=== PATIENT | female | born 1990 | race Caucasian/White ===

== ENCOUNTER → 2018-09-16 | Emergency (ER) | payer OTHER ==
[~2018-09-16] VITALS: Ht 160 cm; Wt 60.3 kg
== END | disposition home or self-care (01) ==
LOC: ER 19:16
DX: K52.89 Other specified noninfective gastroenteritis and colitis (principal)

== ENCOUNTER 2018-09-19 21:10 | Emergency (ER) | payer OTHER ==
[~2018-09-19] VITALS: Ht 160 cm; Wt 59.4 kg
== END 2018-09-20 00:12 | disposition home or self-care (01) ==
LOC: ER 21:10
DX: R10.2 Pelvic and perineal pain (principal); L08.89 Other specified local infections of the skin and subcutaneous tissue

== ENCOUNTER → 2019-06-18 | Outpatient (CLI) | payer OTHER | END | disposition home or self-care (01) | LOC: NST 15:54 | DX: Z34.83 Encounter for supervision of other normal pregnancy, third trimester (principal) ==

== ENCOUNTER 2019-07-26 17:00 | Inpatient (IN) | payer OTHER ==
[~2019-07-26] VITALS: Ht 160 cm; Wt 3.2 kg
[2019-08-09] MEDS ORDERED: VALTREX1000 MG PO (12:15)
[2019-08-09] MEDS ORDERED: INTEGRA CAPSUL1 EACH PO (12:15)
[2019-08-09] MEDS ORDERED: OBSTETRIX DHA1 EACH PO (12:15)
== END 2019-08-19 12:15 | disposition home or self-care (01) | DRG 788 ==
LOC: OB/GYN 08-16 12:15 → O/R 08-17 09:50 → OB/GYN 08-17 11:30
PROVIDERS: ADMIT Obstetrics & Gynecology
PROC: 4A1HXCZ Monitoring of Products of Conception, Cardiac Rate, External Approach (ICD-10-PCS; 2019-08-17)
PROC: 10D00Z1 Extraction of Products of Conception, Low, Open Approach (ICD-10-PCS; principal; 2019-08-17 11:30)
DX: O82 Encounter for cesarean delivery without indication (principal); Z3A.39 39 weeks gestation of pregnancy; Z37.0 Single live birth; Z22.330 Carrier of Group B streptococcus

== ENCOUNTER 2023-10-02 10:26 | Outpatient (CLI) | payer OTHER ==
[~2023-10-02 10:26] MED LIST: INTEGRA CAPSUL1 EACH PO; OBSTETRIX DHA1 EACH PO; VALTREX1000 MG PO
== END 2023-10-02 12:22 | disposition home or self-care (01) ==
LOC: NST 10:26
PROVIDERS: ATTEND Obstetrics & Gynecology
DX: Z34.83 Encounter for supervision of other normal pregnancy, third trimester (principal)

== ENCOUNTER 2023-10-05 07:15 | Inpatient (IN) | payer OTHER ==
[~2023-10-05] VITALS: Ht 162.6 cm; Wt 3.2 kg
[2023-10-05 09:07] LABS: MEAN CELL VOLUME 84.3 fL (80.00-100.00); MEAN CORPUSCULAR HEMOGLOBIN 28.2 pg (27.00-32.0); MEAN CORPUSCULAR HGB CONC 33.4 g/dl (32.0-36.0); PLATELET COUNT 307 K/uL (150-450); RED BLOOD COUNT 3.91 M/uL (4.00-6.00); RED CELL DISTRIBUTION WIDTH 14.9 % (11.5-14.5)
[2023-10-05 09:54] LABS: INR < 0.93; PARTIAL THROMBOPLASTIN TIME 24.4 SECONDS (22.0-34.0); PROTHROMBIN TIME 9.7 SECONDS (9.0-11.5)
[2023-10-05 10:12] LABS: ALBUMIN 2.8 gm/dL (3.4-5.0); BILIRUBIN TOTAL 0.35 mg/dL (0.3-1.2); CALCIUM 9.4 mg/dL (8.5-10.1); CREATININE SERUM 0.5 mg/dL (0.55-1.02); GFR 140.4; GLOBULINA 3.5 G/DL (2.4-3.5); POTASSIUM 4.49 mEq/L (3.5-5.1); TOTAL PROTEIN 6.3 gm/dL (6.4-8.2); TSH 2.68 uIU/mL (0.358-3.74)
== END 2023-10-16 15:29 | disposition home or self-care (01) | DRG 785 ==
LOC: OB/GYN 10-14 07:15 → O/R 10-14 08:19 → OB/GYN 10-14 08:19
PROVIDERS: ADMIT Obstetrics & Gynecology Maternal & Fetal Medicine; ATTEND Obstetrics & Gynecology Maternal & Fetal Medicine
PROC: 0UB70ZZ Excision of Bilateral Fallopian Tubes, Open Approach (ICD-10-PCS; 2023-10-14)
PROC: 0DNW0ZZ Release Peritoneum, Open Approach (ICD-10-PCS; 2023-10-14)
PROC: 4A1HXCZ Monitoring of Products of Conception, Cardiac Rate, External Approach (ICD-10-PCS; 2023-10-14)
PROC: 10D00Z1 Extraction of Products of Conception, Low, Open Approach (ICD-10-PCS; principal; 2023-10-14 08:30)
DX: O34.211 Maternal care for low transverse scar from previous cesarean delivery (principal); O99.892 Other specified diseases and conditions complicating childbirth; N73.6 Female pelvic peritoneal adhesions (postinfective); Z30.2 Encounter for sterilization; Z3A.39 39 weeks gestation of pregnancy; Z37.0 Single live birth; Z20.822 Contact with and (suspected) exposure to COVID-19